=== PATIENT | male | born 1995 | race Asian ===

== ENCOUNTER 2021-10-01 18:41 | Emergency (ER) | payer OTHER ==
[~2021-10-01] VITALS: Ht 170.2 cm; Wt 55.3 kg
[~2021-10-01 18:41] MED LIST: ATIVAN1 MG PO; CLONIDINE HCL0.1 MG PO; GUAIFENESIN400 MG PO; NALTREXONE HCL50 MG PO; PROTONIX40 MG/ML PO; RISPERDAL4 MG PO; SENNA8.6 M1 PO; ZOFRAN8 MG PO; ZYRTEC10 M3 PO
[2021-10-01] MEDS ORDERED: CASIRIVIMAB/IMDEVIMAB 10 ML in SODIUM CHLORIDE 0.9% 100 ML IV ONE (19:45)
[2021-10-01] MEDS ORDERED: PREDNISONE20 MG PO (19:54)
[2021-10-01] MEDS ORDERED: VENTOLIN HFA18 GM INH (19:54)
[2021-10-02 01:15] VITALS: BP 122/72
== END 2021-10-01 20:05 | disposition home or self-care (01) ==
LOC: ER 18:45
DX: U07.1 COVID-19 (principal); R05.9 Cough, unspecified; R50.9 Fever, unspecified; F84.0 Autistic disorder; F41.9 Anxiety disorder, unspecified
CPT/HCPCS: 71045

== ENCOUNTER → 2024-10-02 | Outpatient (REF) | payer OTHER ==
[~2024-10-02] MED LIST changes: +FENTANYL CITRATE/PF 100MCG/2 ML INJ ONE; +MIDAZOLAM HCL 2MG/ML ORAL LIQ CUP ONE; +MIDAZOLAM HCL 5 MG/ML VIAL ONE; +PREDNISONE20 MG PO; +VENTOLIN HFA18 GM INH
== END ==
LOC: MRI 13:38
PROVIDERS: ATTEND Family Medicine
DX: H53.133 Sudden visual loss, bilateral (principal)
CPT/HCPCS: 70551; J2250